=== PATIENT | female | born 1985 | race Caucasian/White ===

== ENCOUNTER 2017-04-27 01:44 | Emergency (ER) | payer MEDICAID ==
[~2017-04-27] VITALS: Ht 162.6 cm; Wt 70.5 kg
[2017-04-27 01:47] VITALS: Ht 162.6 cm; Wt 70.5 kg
[2017-04-27] MEDS ORDERED: SOD CHLORIDE 0.9% 1,000 ML IV STA (03:41)
[2017-04-27] MEDS ORDERED: morphine 4 MG/ML VIAL IV STA (03:41)
[2017-04-27] MEDS ORDERED: ONDANSETRON 4 MG INJ IV STA (03:41)
[2017-04-27 03:52] LABS: URINE BLOOD (Dip) POC Negative (NEGATIVE)
[2017-04-27 04:19] LABS: ADD SCAN DIFF NO
[2017-04-27] MEDS ORDERED: HYDROmorphONE 1 MG/ML SYG IV STA (04:31)
[2017-04-27 04:38] LABS: BASOPHILS % 0.7 % (0.0-2.0); EOSINOPHILS # 0.3 10^3/ul (0.0-0.5); EOSINOPHILS % 4.9 % (0.0-7.0); HEMOGLOBIN 11.2 g/dl (12.0-16.0); LYMPHOCYTES # 2.2 10^3/ul (0.8-2.9); LYMPHOCYTES % 36.5 % (15.0-51.0); MEAN CORPUSCULAR HEMOGLOBIN 28.1 pg (29.0-33.0); MEAN CORPUSCULAR VOLUME 87.7 fl (82.0-101.0); MEAN PLATELET VOLUME 11.3 fl (7.4-10.4); MONOCYTE # 0.8 10^3/ul (0.3-0.9); MONOCYTES % 12.8 % (0.0-11.0); NEUTROPHIL # 2.7 10^3/ul (1.6-7.5); NEUTROPHILS % 44.9 % (39.0-77.0); PLATELET COUNT 258 10^3/UL (140-415); RED BLOOD COUNT 3.99 10^6/ul (4.20-5.40); RED CELL DISTRIBUTION WIDTH 13.3 % (11.5-14.5); WHITE BLOOD COUNT 5.9 10^3/ul (4.8-10.8)
[2017-04-27 04:49] LABS: ALBUMIN 4.6 g/dl (3.3-4.9); ALBUMIN/GLOBULIN RATIO 1.02; BILIRUBIN,INDIRECT 0.2 mg/dl (0-1.1); BILIRUBIN,TOTAL 0.2 mg/dl (0.2-1.3); CALCIUM 9.1 mg/dl (8.4-10.2); CREATININE 0.63 mg/dl (0.44-1.00); POTASSIUM 3.4 mmol/L (3.5-5.1); TOTAL PROTEIN 9.1 g/dl (6.1-8.1)
[2017-04-27 05:00] LABS: ADD UMIC YES; URINE BILIRUBIN (Dip) NEGATIVE (NEGATIVE); URINE BLOOD (Dip) NEGATIVE (NEGATIVE); URINE COLOR LT. YELLOW (YELLOW); URINE GLUCOSE (Dip) NEGATIVE (NEGATIVE); URINE KETONES (Dip) NEGATIVE (NEGATIVE); URINE LEUKOCYTE ESTERASE (Dip) 1+ (NEGATIVE); URINE NITRITE (Dip) NEGATIVE (NEGATIVE); URINE TOTAL PROTEIN (Dip) NEGATIVE (NEGATIVE); URINE UROBILINOGEN (Dip) 0.2 E.U./dL (0.1-1.0)
[2017-04-27] MEDS ORDERED: IBUP200C PO (05:08)
[2017-04-27] MEDS ORDERED: ETAN25KI2 (05:08)
[2017-04-27 05:14] LABS: BACTERIA,URINE MODERATE; SQUAMOUS EPITHELIAL CELL,UR MANY; URINE RBCS 0-2 /HPF (0)
--- NOTE | 2017-04-27 05:16 | RADRPT ---
PROCEDURE: ULTRASOUND LIMITED ABDOMEN CLINICAL INDICATION: 32-year-old female with abdominal pain. TECHNIQUE: Multiple sonographic of the right upper quadrant of the abdomen were obtained. The imag es were reviewed on a PACS workstation. COMPARISON: None. FINDINGS: The pancreas is partially visualized and is otherwise without abnormal echogenicity. The liver displays normal echogenicity. The liver measures 14.9 cm in length. No evidence of intrah epatic biliary ductal dilatation is seen. The portal and hepatic veins are unremarkable. The gallbladder contains multiple shadowing stones with a stone identified in the gallbladder neck r egion. The gallbladder wall is mildly thickened measuring 3.9 mm. No pericholecystic fluid is seen . The common bile duct measures 4.3 mm and is not dilated. The right kidney displays normal echogenicity. The right kidney measures 11.1 cm in maximal length. No caliectasis or hydronephrosis is seen. No free fluid is seen. IMPRESSION: Cholelithiasis with thickened gallbladder wall. .Dontrell Hayden MD, MD Date Time Electronically viewed and signed by .Dontrell Hayden MD, on 04/27/2017 05:16 .M/
--- NOTE | 2017-04-27 05:19 | ERD ---
ER Documentation Chief Complaint Date/Time DATE: 04/27/17 TIME: 05:16 Chief Complaint upper abd pain radaiting to back x 3 days HPI 32 year female upper abdominal pain rating to back for 3 days per patient. Patient has history of gallstones. Pain mild to moderate intensity. Mild nausea. No other current issues. ROS All systems reviewed and are negative except as per history of present illness. Medications Home Meds Reported Medications Etanercept (Enbrel) Unknown Strength Vial, 0 04/27/17 Ibuprofen* (Ibuprofen*) 200 Mg Capsule, 200 MG PO QID Y for PAIN, CAP 04/27/17 Allergies Allergies: Coded Allergies: No Known Drug Allergy (Unverified Allergy, Unknown, 04/27/17) PMhx/Soc History of Surgery: No Anesthesia Reaction: No Hx Neurological Disorder: No Hx Respiratory Disorders: No Hx Cardiac Disorders: No Hx Psychiatric Problems: No Hx Miscellaneous Medical Probl: Yes (gallstones, juvenille arthritis) Hx Alcohol Use: No Hx Substance Use: No Hx Tobacco Use: No Smoking Status: Never smoker Physical Exam Vitals Vital Signs Date Time Temp Pulse Resp B/P Pulse Ox O2 Delivery O2 Flow Rate FiO2 04/27/17 01:47 98.4 77 20 144/66 98 Physical Exam Const: [] Head: Atraumatic Eyes: Normal Conjunctiva ENT: Normal External Ears, Nose and Mouth. Neck: Full range of motion..~ No meningismus. Resp: Clear to auscultation bilaterally Cardio: Regular rate and rhythm, no murmurs Abd: Soft, non tender, non distended. Normal bowel sounds Skin: No petechiae or rashes Back: No midline or flank tenderness Ext: No cyanosis, or edema Neur: Awake and alert Psych: Normal Mood and Affect Result Diagram: 04/27/17 0359 04/27/17 0359 Results 24 hrs Laboratory Tests Test 04/27/17 03:45 04/27/17 03:55 04/27/17 03:59 Urine Color LT. YELLOW Urine Clarity CLEAR Urine pH 6.0 Urine Specific [place] 1.015 Urine Ketones NEGATIVE Urine Nitrite NEGATIVE Urine Bilirubin NEGATIVE Urine Urobilinogen 0.2 E.U./dL Urine Leukocyte Esterase 1+ Urine Microscopic RBC 0-2/HPF Urine Microscopic WBC 2-5/HPF Urine Squamous Epithelial Cells MANY Urine Bacteria MODERATE Urine Hemoglobin NEGATIVE Urine Glucose NEGATIVE% Urine Total Protein NEGATIVE Bedside Urine pH (LAB) 6.5 Bedside Urine Protein (LAB) Negative Bedside Urine Glucose (UA) Negative Bedside Urine Ketones (LAB) Negative Bedside Urine Blood Negative Bedside Urine Nitrite (LAB) Negative Bedside Urine Leukocyte Esterase (L 1+ White Blood Count 5.910^3/ul Red Blood Count 3.9910^6/ul Hemoglobin 11.2g/dl Hematocrit 35.0% Mean Corpuscular Volume 87.7fl Mean Corpuscular Hemoglobin 28.1pg Mean Corpuscular Hemoglobin Concent 32.0g/dl Red Cell Distribution Width 13.3% Platelet Count 31112^3/UL Mean Platelet Volume 11.3fl Neutrophils % 44.9% Lymphocytes % 36.5% Monocytes % 12.8% Eosinophils % 4.9% Basophils % 0.7% Nucleated Red Blood Cells % 0.0/100WBC Neutrophils # 2.710^3/ul Lymphocytes # 2.210^3/ul Monocytes # 0.810^3/ul Eosinophils # 0.310^3/ul Basophils # 0.010^3/ul Nucleated Red Blood Cells # 0.010^3/ul Sodium Level 143mmol/L Potassium Level 3.4mmol/L Chloride Level 107mmol/L Carbon Dioxide Level 26mmol/L Anion Gap 13 Blood Urea Nitrogen 15mg/dl Creatinine 0.63mg/dl Glucose Level 100mg/dl Calcium Level 9.1mg/dl Total Bilirubin 0.2mg/dl Direct Bilirubin 0.00mg/dl Indirect Bilirubin 0.2mg/dl Aspartate Amino Transf (AST/SGOT) 29IU/L Alanine Aminotransferase (ALT/SGPT) 33IU/L Alkaline Phosphatase 93IU/L Total Protein 9.1g/dl Albumin 4.6g/dl Globulin 4.50g/dl Albumin/Globulin Ratio 1.02 Lipase 130U/L Current Medications Medications (Trade) Dose Ordered Sig/Andres Route PRN Reason Start Time Stop Time Status Last Admin Dose Admin Sodium Chloride (NS) 1,000 ml @ 1,000 mls/hr Q1H STAT IV 04/27/17 03:41 04/27/17 04:40 DC 04/27/17 03:57 Morphine Sulfate (morphine) 4 mg ONCE STAT IV 04/27/17 03:41 04/27/17 03:42 DC 04/27/17 03:56 Ondansetron HCl (Zofran Inj) 4 mg ONCE STAT IV 04/27/17 03:41 04/27/17 03:42 DC 04/27/17 03:56 Hydromorphone HCl (Dilaudid) 1 mg ONCE STAT IV 04/27/17 04:31 04/27/17 04:32 DC 04/27/17 04:36 Procedures/MDM Medical decision-makin-year-old female as well as to be biliary colic but it has been clinically stable with no evidence of infection. Patient will be discharged home. Follow-up in 8 hours for serial abdominal exam Departure Diagnosis: Primary Impression: Abdominal pain Abdominal location: right upper quadrant Qualified Code: R10.11 - Right upper quadrant abdominal pain Condition: Stable ANNI WHITT Apr 27, 2017 05:19
[2017-04-27] MEDS ORDERED: TRAM50TA2 PO (05:29)
[2017-04-27] MEDS ORDERED: ONDA4TAB14 PO (05:29)
[2017-04-27 06:03] VITALS: BP 122/80; PULSE 88; RESP 20; TEMP 97.8
== END 2017-04-27 06:05 | disposition home or self-care (01) ==
LOC: E/R 01:44
DX: R10.11 Right upper quadrant pain (principal)
CPT/HCPCS: 36415; 76705; 80053; 81001; 83690; 85025; 96374; 96375; J1170; J2270; J2405; J7030; Z7502; 81003

== ENCOUNTER 2019-07-22 15:33 | Emergency (ER) | payer MEDICAID ==
[~2019-07-22] VITALS: Ht 157.5 cm; Wt 68.0 kg
[~2019-07-22 15:33] MED LIST: ETAN25KI2; IBUP-1561 PO; IBUP-1982 PO; ONDA4TAB14 PO; RANI-535 PO; TRAM50TA2 PO
[2019-07-22 15:39] VITALS: Ht 157.5 cm; Wt 68.0 kg
[2019-07-22] MEDS ORDERED: ONDANSETRON 4 MG INJ IV STA (16:15)
[2019-07-22] MEDS ORDERED: KETOROLAC 15 MG INJ IV STA (16:15)
[2019-07-22] MEDS ORDERED: FAMOTIDINE 20 MG INJ IV ONE (16:30)
[2019-07-22] MEDS ORDERED: SOD CHLORIDE 0.9% 500 ML IV ONE (16:30)
[2019-07-22 19:13] VITALS: BP 114/68; PULSE 54; RESP 20
== END 2019-07-22 19:14 | disposition home or self-care (01) ==
LOC: FTE 15:33
DX: K80.20 Calculus of gallbladder without cholecystitis without obstruction (principal)
CPT/HCPCS: 76705; 80053; 81025; 83690; 85025; J1885; J2405; J7040; Z7610; 36415; 96361; 96374; 96375